=== PATIENT | female | born 1995 | race Caucasian/White ===

== ENCOUNTER 2019-02-01 17:04 | Emergency (ER) | payer SELFPAY ==
--- NOTE | 2019-02-01 17:40 | C.PDOC ---
History Of Present Illness 23 y/o female w/ recent (october) presents to the ER c/o vaginal bleeding during intercourse. She notes vaginal bleeding only during intercourse x2 weeks. No yellowish vaginal discharge. No rashes or history of STD. No fall or trauma. Pt denies dysuria, constipation, diarrhea, rash or hx of STD. Pt notes that she also previously had sore throat and an enlarged lymph node on the left side of the neck and was seen by an urgent care physician and given amoxillin. Pt notes that her sore throat has greatly improved and that her lymph node is now less enlarged after taking amoxicillin for x2 days. Pt denies any difficulty swallowing, SOB or vocal changes. Pt notes she recently started taking control x2 weeks ago, when her vaginal bleeding started. No leg swelling or chest pain or sob. No fever, chills or night sweats. no other complaints. Time Seen by Provider: 02/01/19 17:30 Chief Complaint (Nursing): ENT Problem History Per: Patient History/Exam Limitations: no limitations Onset/Duration Of Symptoms: Days Past Medical History Reviewed: Historical Data, Nursing Documentation, Vital Signs Vital Signs: Last Vital Signs Temp 98.7 F 02/01/19 17:12 Pulse 96 H 02/01/19 17:12 Resp 18 02/01/19 17:12 BP 118/84 02/01/19 17:12 Pulse Ox 99 02/01/19 17:12 Surgical History: No Surg Hx Family History: States: No Known Family Hx - Social History Hx Alcohol Use: Yes Hx Substance Use: No - Immunization History Hx Tetanus Toxoid Vaccination: No Hx Influenza Vaccination: No Hx Pneumococcal Vaccination: No Review Of Systems Constitutional: Negative for: Fever, Chills, Sweats, Weakness, Malaise, Weight loss, Other (hx of STD) Eyes: Negative for: Pain, Vision Change, Conjunctivae Inflammation, Eyelid Inflammation, Redness ENT: Negative for: Ear Pain, Ear Discharge, Nose Pain, Nose Discharge, Nose Congestion, Mouth Pain, Mouth Swelling, Throat Pain, Other (difficulty swa llowing and vocal changes ) Cardiovascular: Negative for: Chest Pain, Palpitations, Orthopnea, Paroxysmal Noc. Dyspnea, Edema, Light Headedness, Other Respiratory: Negative for: Cough, Shortness of Breath Gastrointestinal: Negative for: Nausea, Vomiting, Abdominal Pain, Diarrhea, Constipation, Hematochezia Genitourinary: Positive for: Vaginal Bleeding (during intercourse). Negative for: Dysuria, Frequency, Incontinence, Hematuria, Vaginal Discharge, Pelvic Pain, Rash Musculoskeletal: Negative for: Neck Pain, Shoulder Pain, Arm Pain, Back Pain, Hand Pain Skin: Negative for: Rash Neurological: Negative for: Weakness, Numbness Psych: Negative for: Anxiety, Depression Physical Exam - Physical Exam Appears: Well, Non-toxic, No Acute Distress Skin: Warm, Dry, No Rash Head: Atraumatic, Normacephalic Eye(s): bilateral: Normal Inspection, PERRL, EOMI Ear(s): Bilateral: Normal, Other (no auricular erythema. No mastoid erythema or tenderness) Nose: Normal, No Discharge, No Epistaxis, No Septal Hematoma Oral Mucosa: Moist, No Drooling, No Trismus Tongue: Normal Appearing, No Swelling, No Lesions Lips: Normal Appearing Teeth: Normal Dentition Gingiva: Normal Appearing, No Erythema, No Ulceration Throat: Normal, No Erythema, No Exudate, No Drooling, No Mass Neck: Normal ROM, Trachea Midline, No Midline Cervical Tenderness, No Step Off Deformity, Supple, No Other (no meningeal signs- negative kernig's and brudzinski's ) Lymphatic: Adenopathy (L anterior cervical chain x1 node 0.5x0.5cm) Chest: Symmetrical Cardiovascular: Rhythm Regular, No Friction Rub Respiratory: No Rales, No Rhonchi, No Wheezing Gastrointestinal/Abdominal: Soft, No Tenderness, No Distention Back: Normal Inspection, No CVA Tenderness, No Vertebral Tenderness Extremity: Bilateral: Normal Color And Temperature Pulses: Left Dorsalis Pedis: Normal (2+), Right Dorsalis Pedis: Normal (2+) Neurological/Psych: Oriented x3, Normal Speech, Normal Cognition, Normal Cranial Nerves, No Cerebellar Signs, Normal Motor, Normal Sensation Gait: Steady ED Course And Treatment - Laboratory Results Result Diagrams: 02/01/19 18:00 02/01/19 18:00 O2 Sat by Pulse Oximetry: 99 (RA) Pulse Ox Interpretation: Normal - CT Scan/US transvaginal Other Rad Studies (CT/US): Read By Radiologist, Radiology Report Reviewed CT/US Interpretation: Name:SATISH VILLAFANA Exam Date:Feb 01, 2019 6:12:17 PM EDT. Modality Type:SD\US\OT\IA\SR. Description:US - PELVIC REAL TIME TRANSABDOMINAL/TRANSVAGINAL W COLOR DOPPLER. Gender:F Laterality:Not applicable. :95 Referring Physician:ADEEL VILLALOBOS. EXAM: US Pelvis, Complete Transvaginal and Transabdominal. COMPARISON: None provided. CLINICAL HISTORY: Vaginal bleeding w/ intercourse. TECHNIQUE: Transvaginal and transabdominal pelvic ultrasound (complete) with image documentation. FINDINGS: ENDOMETRIUM: Normal thickness. UTERUS/CERVIX: The uterus appears within normal limits. No uterine fibroid or other mass evident. RIGHT OVARY: Normal Doppler flow. No abnormal mass. LEFT OVARY: Normal Doppler flow. No abnormal mass. FREE FLUID: No free fluid. IMPRESSION: Unremarkable pelvic ultrasound. . Electronically signed on Feb 01, 2019 7:11:41 PM EDT by: Uday Wong M.D., Certified by ABR, Diagnostic Radiology Medical Decision Making Medical Decision Makin23 y/o female pt hx of presents to the ER c/o vaginal bleeding during intercourse. Uses safe sex practices including condoms and BC. Has noted vaginal bleeding during intercourse. No pelvic pain or rash. No abdominal pain or back pain. No extremity pain. No trauma or fall. L neck anterior cervical lymph node. No posterior lymphadenopathy. No hot potatoe voice. Uvula midline w/ out massess. No drooling noted. No ludwigs or appreciable airway issues. No difficulty with solids or fluids orally per pt. L lymphadenopathy much improved per pt. She now denies sore throat. No meningeal signs. Plans: -- chem labs -- blood work -- transvaginal US 1833 UA w/ UTI. No CVAT on exam pending TVUS mildly elevated WBC pt has known strep w/ uti 2023 TVUS unremarkable No CMT, No adenexal tenderness on exam. No Ovarian pain on exam. No abrasions or active bleeding noted. No strawberry cervix noted. Pt notes she would like STD treatment. She denies seeking any HIV testing. I endorsed need for safe sex practices and stressed the importance of informing her partners to get tested. She notes understanding. Disposition - Disposition Referrals: [facility] [Outside] [facility] [Outside] [facility] [Outside] [facility]Outside] [facility] [[facility]] [facility] [Outside] Victor Hugo Fernandez MD [Staff Provider] - Francesca Doss DO [Staff Provider] - Disposition: HOME/ ROUTINE Disposition Time: 20:21 Condition: GOOD Additional Instructions: USE CONDOMS DURING SEX. IF YOU NOTE WORSENING OF SYMPTOMS, RETURN. WE WILL CALL YOU WITH ABNORMAL RESULTS. HAVE YOU PARTNER TESTED AND TREATED FOR POTENTIAL STDS LEDY COVARRUBIAS, thank you for letting us take care of you today. Your provider was Florentino Groves and you were treated for NECK PAIN. The emergency medical care you received today was directed at your acute symptoms. If you were prescribed any medication, please fill it and take as directed. It may take several days for your symptoms to resolve. Return to the Emergency Department if your symptoms worsen, do not improve, or if you have any other problems. Please contact your doctor or call one of the physicians/clinics you have been referred to that are listed on the Patient Visit Information form that is included in your discharge packet. Bring any paperwork you were given at discharge with you along with any medications you are taking to your follow up visit. Our treatment cannot replace ongoing medical care by a primary care provider outside of the emergency department. Thank you for allowing the [facility] team to be part of your care today. If you had an X-Ray or CT scan: A Radiologist will review the ED reading if any change in treatment is needed we will contact you. If you had a blood, urine, or wound culture: It will take several days for the results, if any change in treatment is needed we will contact you. If you had an STI test: It will take 48 hours for the results. Please call after 1 week if you have not heard back. Prescriptions: Nitrofurantoin Macrocrystal [Macrodantin] 100 mg PO BID 5 Days #10 capsule Instructions: Urinary Tract Infection, Adult (DC), Screening for Sexually Transmitted Infections Forms: [employer] ([place]) - Clinical Impression Clinical Impression: UTI (urinary tract infection), Screen for STD (sexually transmitted disease) - Scribe Statement The provider has reviewed the documentation as recorded by the Hussain Avina Do Provider Attestation: All medical record entries made by the Scribe were at my direction and personally dictated by me. I have reviewed the chart and agree that the record accurately reflects my personal performance of the history, physical exam, medical decision making, and the department course for this patient. I have also personally directed, reviewed, and agree with the discharge instructions and disposition.
[2019-02-01 18:08] LABS: BASO # 0.1 K/uL (0.0-0.2); BASO % 0.7 % (0.0-2.0); EOS # 0.1 K/uL (0.0-0.7); EOS % 0.4 % (0.0-4.0); HEMOGLOBIN 12.5 g/dL (11.0-16.0); LYMPH # 1.8 K/uL (1.0-4.3); LYMPH % 13.1 % (20.0-40.0); MEAN CELL VOLUME 90.3 fL (81.0-99.0); MEAN CORPUSCULAR HEMOGLOBIN 30.5 pg (27.0-31.0); MEAN CORPUSCULAR HGB CONC 33.7 g/dL (33.0-37.0); MEAN PLATELET VOLUME 7.5 fL (7.2-11.7); MONO # 0.7 K/uL (0.0-0.8); MONO % 5.6 % (0.0-10.0); NEUT # 10.8 K/uL (1.8-7.0); NEUT % 80.2 % (50.0-75.0); RBC 4.11 Mil/uL (3.80-5.20); RED CELL DISTRIBUTION WIDTH 13.7 % (11.5-14.5); WHITE BLOOD COUNT 13.4 K/uL (4.8-10.8)
[2019-02-01 18:09] LABS: SQUAMOUS EPITHIAL 13 /hpf (0-5); URINE BACTERIA MANY (<OCC); URINE BILIRUBIN NEGATIVE (NEGATIVE); URINE BLOOD 2+ (NEGATIVE); URINE CLARITY Hazy (Clear); URINE COLOR Amber (YELLOW); URINE GLUCOSE (UA) NORMAL (Normal); URINE LEUKOCYTE ESTERASE NEG Leu/uL (Negative); URINE PROTEIN 1+ mg/dL (NEGATIVE)
[2019-02-01 18:15] LABS: INR 1.2; PROTHROMBIN TIME 12.9 SECONDS (9.7-12.2)
[2019-02-01 18:21] LABS: ALB/GLOB RATIO 1.1 (1.0-2.1); ALT/SGPT 8 U/L (9-52); AST/SGOT 21 U/L (14-36); BLOOD UREA NITROGEN 11 mg/dL (7-17); CALCIUM 9.8 mg/dl (8.6-10.4); GFR NON-AFRICAN AMERICAN > 60
[2019-02-01 19:11] LABS: VENOUS BLOOD GAS BASE EXCESS 0.3 mmol/L (0.0-2.0); VENOUS BLOOD GAS PCO2 42 mmHg (40-60); VENOUS BLOOD GAS PO2 42 mm/Hg (30-55); VENOUS BLOOD PH 7.39 (7.32-7.43)
[2019-02-01] MEDS ORDERED: cefTRIAXone (Rocephin) 250 mg Inj IM STA (20:19)
[2019-02-01 20:31] VITALS: TEMP 98.4
[2019-02-01 20:52] VITALS: BP 118/78; PULSE 86; RESP 18
[2019-02-01 23:38] VITALS: O2SAT 99
--- NOTE | 2019-02-02 17:36 | US ---
Date of service: 02/01/2019 HISTORY: vaginal bleeding w/ intercourse COMPARISON: None available. TECHNIQUE: Transabdominal and transvaginal FINDINGS: UTERUS: Measures 7.3 x 3.4 x 3.9 cm. Normal in size and appearance. No fibroid or other mass lesion seen. ENDOMETRIUM: Measures mm in diameter. 3 CERVIX: No cervical abnormality identified. RIGHT OVARY: Measures 2.7 x 1.9 x 2.4 cm. No solid mass. Normal flow. LEFT OVARY: Measures 2.5 x 1.4 x 2.3 cm. No solid mass. Normal flow. FREE FLUID: No significant free fluid noted. OTHER FINDINGS: None. IMPRESSION: Unremarkable pelvic ultrasound. The preliminary findings for this examination were reported by [facility] Radiology at 7:11 p.m. on 02/01/2019. There is concurrence of this report with the preliminary findings.
== END 2019-02-01 20:50 | disposition home or self-care (01) ==
LOC: C.ER 17:04
DX: N39.0 Urinary tract infection, site not specified (principal); Z11.3 Encounter for screening for infections with a predominantly sexual mode of transmission
CPT/HCPCS: 76830; 76856; 80053; 81001; 81025; 82803; 85025; 85610; 85730; 86850; 86900; 96372; 99285; J0696